=== PATIENT | female | born 1995 | race Caucasian/White ===

== ENCOUNTER 2017-10-27 10:58 | Emergency (ER) | payer BC ==
[~2017-10-27] VITALS: Ht 167.6 cm; Wt 61.8 kg
[2017-10-27 11:12] VITALS: Ht 167.6 cm; Wt 61.8 kg
[2017-10-27] MEDS ORDERED: BCPILLS PO (11:35)
[2017-10-27] MEDS ORDERED: SERT50TA PO (11:35)
[2017-10-27] MEDS ORDERED: KETOROLAC TROMETHAMINE 30 MG/ML VIAL IV STA (13:04)
[2017-10-27] MEDS ORDERED: SODIUM CHLORIDE 0.9% 1000ML 1,000 ML IV STA ×2 (13:04→14:09)
[2017-10-27] MEDS ORDERED: ONDANSETRON INJ 2 MG/ML 2 ML VIAL IV STA (13:04)
[2017-10-27 13:12] LABS: BASO % 0.1 %; BASO ABS # 0.02 K/uL (0-0.2); EOS % 0.1 %; EOS ABS # 0.02 K/uL (0-0.5); HEMATOCRIT 39.2 % (37-47); HEMOGLOBIN 14.3 g/dL (12.0-16.0); IG# 0.06 K/uL (0.00-0.02); LYMPH % 5.5 %; LYMPH ABS # 1.01 K/uL (1.2-3.4); MEAN CELL VOLUME 87.9 fL (80-100); MEAN CORPUSCULAR HEMOGLOBIN 32.1 pg (25-34); MEAN CORPUSCULAR HGB CONC 36.5 g/dl (32-36); MEAN PLATELET VOLUME 9.7 fL (7.4-10.4); NEUT ABS # 16.03 K/uL (1.4-6.5); PLATELET COUNT 296 K/uL (130-400); RED CELL DISTRIBUTION WIDTH CV 13.3 % (11.5-14.5); RED CELL DISTRIBUTION WIDTH SD 42.4 fL (36.4-46.3); WHITE BLOOD COUNT 18.24 K/uL (4.8-10.8)
--- NOTE | 2017-10-27 13:14 | EMERGENCY ROOM VISIT NOTE ---
History Report prepared by Alvaro: Todd Sheikh Under the Supervision of: Dr. Leon Andrade M.D. First contact with patient: 12:21 Chief Complaint: NAUSEA Stated Complaint: NAUSEA, CANT KEEP FLUIDS DOWN, DIARRHEA, FEVER Nursing Triage Summary: Pt c/o fever, n/v/d since Friday, today also has sore throat and states that it hurts to breathe. Pt denies abdominal pain. History of Present Illness The patient is a 22 year old white female with a past medical history of anxiety who presents to the Emergency Room with complaints of persistent nausea , vomiting, and diarrhea that began on Friday 2 days ago. The patient states that her symptoms first began on Friday with diarrhea and nausea. Friday night into Friday morning she felt better, and this morning she developed a fever of 101.5. She is also now complaining of a sore throat and globalized joint pain. The patient takes control and Zoloft daily for anxiety. She did travel to [place] on the 18 of September Source of History: patient Onset: 2 days ago Position: abdomen Quality: other (N/V/D) Timing: other (Persistent) Associated Symptoms: + fevers, + nausea, + vomiting, + diarrhea Review of Systems See HPI for pertinent positives and negatives. A total of ten systems were reviewed and were otherwise negative. Past Medical & Surgical Hx of anxiety Social History Smoking Status: Never Smoker Alcohol Use: occasionally Marital Status: single Housing Status: lives with roommate Occupation Status: [employer] Current/Historical Medications Scheduled Control Pills ( Control Pills), 1 TAB PO DAILY Cephalexin (Keflex), 1 CAP PO BID Sertraline (Zoloft), 50 MG PO DAILY Scheduled PRN Ondansetron Hcl (Zofran), 4 MG PO Q8H PRN for Nausea Allergies Coded Allergies: No Known Allergies (Unverified , 10/27/17) Physical Exam Vital Signs Date Time Temp Pulse Resp B/P (MAP) Pulse Ox O2 Delivery O2 Flow Rate FiO2 10/27/17 16:36 111 18 110/60 99 10/27/17 15:56 37.5 113 18 111/67 95 Room Air 10/27/17 14:25 122 20 104/74 100 Room Air 10/27/17 14:25 120 20 99/67 100 Room Air 10/27/17 13:29 130 10/27/17 13:22 128 16 104/74 100 Room Air 10/27/17 11:12 39.4 126 18 139/80 100 Room Air Physical Exam GENERAL: Awake, alert, well-appearing, NAD HENT: Normocephalic, atraumatic. Posterior oropharynx is clear, no tonsillar exudate, no stridor. EYES: Normal conjunctiva. Sclera non-icteric. NECK: Supple. No nuchal rigidity. FROM. RESPIRATORY: CTAB, no rhonchi, wheezing, crackles CARDIAC: Tachycardic rate, with regular rhythm no MRG ABDOMEN: Soft, NTND, BS+, no CVA TTP, negative obturators, negative psoas. MSK: No chest wall TTP, no LE edema NEURO: GCS 15, CN 2-12 intact, moves all 4s on command SKIN: No rash or jaundice noted. Medical Decision & Procedures Laboratory Results 10/27/17 12:35 Red Blood Count 4.46, Mean Corpuscular Volume 87.9, Mean Corpuscular Hemoglobin 32.1, Mean Corpuscular Hemoglobin Concent 36.5, Mean Platelet Volume 9.7, Neutrophils (%) (Auto) 88.0, Lymphocytes (%) (Auto) 5.5, Monocytes (%) (Auto) 6.0, Eosinophils (%) (Auto) 0.1, Basophils (%) (Auto) 0.1, Neutrophils # (Auto) 16.03, Lymphocytes # (Auto) 1.01, Monocytes # (Auto) 1.10, Eosinophils # (Auto) 0.02, Basophils # (Auto) 0.02 10/27/17 12:35 Test 10/27/17 12:00 10/27/17 12:35 10/27/17 13:40 Urine Color DK YELLOW Urine Appearance CLOUDY (CLEAR) Urine pH 6.0 (4.5-7.5) Urine Specific [place] 1.025 (1.000-1.030) Urine Protein 1+ (NEG) Urine Glucose (UA) NEG (NEG) Urine Ketones TRACE (NEG) Urine Occult Blood NEG (NEG) Urine Nitrite NEG (NEG) Urine Bilirubin NEG (NEG) Urine Urobilinogen NEG (NEG) Urine Leukocyte Esterase SMALL (NEG) Urine WBC (Auto) 10-30 /hpf (0-5) Urine RBC (Auto) 10-30 /hpf (0-4) Urine Hyaline Casts (Auto) 1-5 /lpf (0-5) Urine Epithelial Cells (Auto) >30 /lpf (0-5) Urine Bacteria (Auto) 3+ (NEG) Urine Pathogenic Casts /lpf (0) Urine Test NEG (NEG) White Blood Count 18.24 K/uL (4.8-10.8) Red Blood Count 4.46 M/uL (4.2-5.4) Hemoglobin 14.3 g/dL (12.0-16.0) Hematocrit 39.2 % (37-47) Mean Corpuscular Volume 87.9 fL (80-100) Mean Corpuscular Hemoglobin 32.1 pg (25-34) Mean Corpuscular Hemoglobin Concent 36.5 g/dl (32-36) Platelet Count 296 K/uL (130-400) Mean Platelet Volume 9.7 fL (7.4-10.4) Neutrophils (%) (Auto) 88.0 % Lymphocytes (%) (Auto) 5.5 % Monocytes (%) (Auto) 6.0 % Eosinophils (%) (Auto) 0.1 % Basophils (%) (Auto) 0.1 % Neutrophils # (Auto) 16.03 K/uL (1.4-6.5) Lymphocytes # (Auto) 1.01 K/uL (1.2-3.4) Monocytes # (Auto) 1.10 K/uL (0.11-0.59) Eosinophils # (Auto) 0.02 K/uL (0-0.5) Basophils # (Auto) 0.02 K/uL (0-0.2) RDW Standard Deviation 42.4 fL (36.4-46.3) RDW Coefficient of Variation 13.3 % (11.5-14.5) Immature Granulocyte % (Auto) 0.3 % Immature Granulocyte # (Auto) 0.06 K/uL (0.00-0.02) Anion Gap 14.0 mmol/L (3-11) Est Creatinine Clear Calc Drug Dose 108.6 ml/min Estimated GFR () 129.1 Estimated GFR (Non- 111.3 BUN/Creatinine Ratio 8.1 (10-20) Calcium Level 8.7 mg/dl (8.5-10.1) Total Bilirubin 0.4 mg/dl (0.2-1) Direct Bilirubin < 0.1 mg/dl (0-0.2) Aspartate Amino Transf (AST/SGOT) 11 U/L (15-37) Alanine Aminotransferase (ALT/SGPT) 15 U/L (12-78) Alkaline Phosphatase 68 U/L (45-117) Total Protein 7.6 gm/dl (6.4-8.2) Albumin 3.6 gm/dl (3.4-5.0) Lipase 107 U/L (73-393) Influenza Type A Antigen Neg for Influ A (NEG) Influenza Type B Antigen Neg for Influ B (NEG) Laboratory results reviewed by me Medications Administered Medications (Trade) Dose Ordered Sig/[place] Route Start Time Stop Time Status Last Admin Dose Admin Sodium Chloride 1,000 ml @ 999 mls/hr Q1H1M STAT IV 10/27/17 13:04 10/27/17 14:04 DC 10/27/17 13:04 999 MLS/HR Ondansetron HCl (Zofran Inj) 4 mg NOW STAT IV 10/27/17 13:04 10/27/17 13:05 DC 10/27/17 13:35 4 MG Ketorolac Tromethamine (Toradol Inj) 30 mg NOW STAT IV 10/27/17 13:04 10/27/17 13:05 DC 10/27/17 13:35 30 MG Ceftriaxone Sodium (Rocephin Inj) 1 gm NOW STAT IV 10/27/17 14:09 10/27/17 14:10 DC 10/27/17 14:24 1 GM Sodium Chloride 1,000 ml @ 999 mls/hr Q1H1M STAT IV 10/27/17 14:09 10/27/17 15:09 DC 10/27/17 14:24 999 MLS/HR Acetaminophen (Tylenol Tab) 1,000 mg NOW STAT PO 10/27/17 15:43 10/27/17 15:44 DC 10/27/17 15:56 1,000 MG ECG Per My Interpretation Indication: nausea, vomiting Rate (beats per minute): 126 Rhythm: sinus tachycardia Findings: T-wave inversion (Inferior), other (Normal axis) ED Course 1258: The patient was evaluated in room C8. A complete history and physical exam was performed. 1627: I reevaluated the patient. Discussed results and discharge instructions: She verbalized understanding and agreement. The patient is ready for discharge. Medical Decision The patient is a 22 year old white female with a past medical history of anxiety who presents to the Emergency Room with complaints of persistent nausea , vomiting, and diarrhea that began on Friday 2 days ago. Differential diagnosis: Etiologies such as gastroenteritis, food borne illness, infections, appendicitis , diverticulitis, inflammatory bowel disease, obstruction, GI bleed, biliary pathology, as well as others were entertained. Patient was seen and evaluated the bedside. Patient had complained of some intermittent nausea with vomiting and diarrhea. This began approximately 2 days prior. The patient of note thought it was may been related to some food poisoning as the patient had never eaten [employer] [place] before but noticed that her symptoms began shortly thereafter. Patient denies any blood or bowel movements. Patient denies any recent antibiotics or sick contacts. Patient on exam is very well-appearing does not complain of any urinary symptoms and does not have any CVA TTP. This was initially believed to be a likely viral illness and less symptomatic treatment would commence along with checking a urine and flu swab. However, blood was drawn so blood work was also obtained. Patient did have blood work completed along with an EKG, flu swab, urinalysis, and urine test. Patient's EKG did show sinus tachycardia. She did have questionable DWI in the inferior leads however the patient does not have any associated chest pain does not have any risk factors so less likely ACS. This is likely just rate related secondary to dehydration. Patient did have an elevated white blood cell count of 18,000, tachycardia, and fever. Upon reassessment the patient was feeling improved. The patient was ordered Rocephin given the cause for concern of possible urinary tract infection. Again the patient does not complain of any back pain dysuria and lactic CVA tenderness on exam. Less likely Wiley or infected stone. There may be a concomitant element of viral infection or even as she discussed possible food poisoning gastroenteritis given the recent food ingestion. I do not believe that she requires a CT scan at this time even though she does meet criteria for sepsis. The patient again is incredibly well appearing and is otherwise fairly asymptomatic. The patient does have a mildly elevated heart rate however it has improved with antipyretics, symptomatically treatments, and IV fluids. The patient has not had any episodes of emesis while in the department and has been able to tolerate p.o. I believe it is suitable to continue the patient on outpatient antibiotics and treatment. The patient was given prescriptions in order to obtain at the pharmacy. I did discuss the case with the charge nurse and did leave a note so that the patient would be called tomorrow afternoon in order to further evaluate the patient. I believe this is a reasonable plan of care given the patient's well-appearing status even in light of her lab work and vital signs. Furthermore, the patient again feels very well and denies any worsening discomfort and the patient is feeling improved. Patient was deemed suitable for outpatient follow-up and treatment at this time. Patient was given strict follow-up, discharge, and return precautions. All questions were answered. Patient was deemed suitable for outpatient follow-up at this time. Patient agreed with the plan of care and was safely discharged home. Impression Primary Impression: UTI (urinary tract infection) Additional Impressions: Viral illness Hypokalemia Scribe Attestation The scribe's documentation has been prepared under my direction and personally reviewed by me in its entirety. I confirm that the note above accurately reflects all work, treatment, procedures, and medical decision making performed by me. Departure Information Dispostion Home / Self-Care Prescriptions Ondansetron Hcl (ZOFRAN) 4 Mg Tab 4 MG PO Q8H Y for Nausea, #12 TAB Prov: Leon Andrade M.D. 10/27/17 Cephalexin (KEFLEX) 500 Mg Cap 1 CAP PO BID for 7 Days, #14 CAP Prov: Leon Andrade M.D. 10/27/17 Referrals No Doctor, Assigned (PCP) Patient Instructions ED Dehydration, ED UTI Cystitis Female, My [facility] Additional Instructions Please return to the emergency department if you have worsening or recurrent symptoms not amenable to at-home treatment. Please call for a follow-up appointment with her primary care physician. Please take your medications as prescribed. If you have other concerns and/or complaints please feel free to also call your primary care physician's office or return the ED for further evaluation, management, and treatment. You may take 600 mg Ibuprofen every 6 hours as needed for pain with food for no more than 2 consecutive days. You may take tylenol 1000 mg every 6 hours as needed for pain. You may take motrin and tylenol separately or at the same time. Is continue to aggressively hydrate liberally with clear liquids. Please avoid alcohol. Please continue take her antibiotics as prescribed. Consider taking her antibiotics with yogurt with the very least with food and possibly a probiotic. Consider taking a Pepcid 20 mg twice daily to help avoid GI upset. Take your medications as prescribed. You have been examined and treated today on an emergency basis only. This is not a substitute for, or an effort to provide, complete comprehensive medical care. It is impossible to recognize and treat all injuries or illnesses in a single emergency department visit. It is therefore important that you follow up closely with [facility], your PCP, and/or your specialist(s). Call as soon as possible for an appointment. Thank you for your time and consideration. I look forward to speaking with you again soon. Please don't hesitate to call us if you have any questions. Problem Qualifiers Primary Impression: UTI (urinary tract infection) Urinary tract infection type: acute cystitis Hematuria presence: without hematuria Qualified Codes: N30.00 - Acute cystitis without hematuria
[2017-10-27 13:19] LABS: ALBUMIN 3.6 gm/dl (3.4-5.0); ALT/SGPT 15 U/L (12-78); BLOOD UREA NITROGEN 6 mg/dl (7-18); CALCIUM 8.7 mg/dl (8.5-10.1); CARBON DIOXIDE 20 mmol/L (21-32); CREATININE 0.76 mg/dl (0.60-1.20); GLUCOSE 92 mg/dl (70-99); LIPASE 107 U/L (73-393); POTASSIUM 3.3 mmol/L (3.5-5.1); SODIUM 136 mmol/L (136-145)
[2017-10-27 13:22] LABS: ALKALINE PHOSPHATASE 68 U/L (45-117); AST/SGOT 11 U/L (15-37); TOTAL PROTEIN 7.6 gm/dl (6.4-8.2)
[2017-10-27] MEDS ORDERED: CEFTRIAXONE SOD INJ 1 GM ADDVIAL IV STA (14:09)
[2017-10-27 14:27] LABS: INFLUENZA B ANTIGEN Neg for Influ B (NEG)
[2017-10-27] MEDS ORDERED: ACETAMINOPHEN 500 MG TAB PO STA (15:43)
[2017-10-27 15:56] VITALS: TEMP 37.5
[2017-10-27] MEDS ORDERED: ONDA4TAB46 PO (16:24)
[2017-10-27] MEDS ORDERED: CEPH-571 PO (16:24)
[2017-10-27 16:36] VITALS: BP 110/60; PULSE 111; O2SAT 99
== END 2017-10-27 16:37 | disposition home or self-care (01) ==
LOC: C.EDB 11:02 → C.EDC 16:37
DX: N39.0 Urinary tract infection, site not specified (principal); R11.2 Nausea with vomiting, unspecified; E87.6 Hypokalemia; R50.9 Fever, unspecified; R19.7 Diarrhea, unspecified